=== PATIENT | female | born 1960 | race Caucasian/White ===

== ENCOUNTER 2025-04-23 09:57 | Observation (INO) | payer MEDICARE, OTHER ==
[~2025-04-23] VITALS: Ht 165.1 cm; Wt 68.9 kg
[2025-04-23 10:40] LABS: BASO # 0.0 10^3/uL (0.0-0.2); BASO % 0.7 % (0.0-1.0); EOS # 0.2 10^3/uL (0.0-0.5); EOS % 3.2 % (0.0-3.0); LYMPH # 2.1 10^3/uL (1.5-5.0); LYMPH % 36.7 % (24.0-44.0); MONO # 0.5 10^3/uL (0.0-0.8); MONO % 8.2 % (2.0-8.0); NEUTROPHILS # 2.9 10^3/uL (1.5-8.5); NEUTROPHILS % 51.0 % (36.0-66.0); PLATELET COUNT, AUTOMATED 221 10^3/uL (150-450)
[2025-04-23 11:04] LABS: CALCIUM LEVEL 9.0 MG/DL (8.3-10.6); CARBON DIOXIDE LEVEL 28 MMOL/L (20-31); CHLORIDE LEVEL 107 MMOL/L (98-107); CREATININE FOR GFR 0.75 MG/DL (0.55-1.30); GLOMERULAR FILTRATION RATE 88.3 (>45); POTASSIUM SERUM 4.6 MMOL/L (3.5-5.1); SODIUM LEVEL 139 MMOL/L (136-145)
[2025-04-23] MEDS: ACETAMINOPHEN 500 MG TAB PO ONE (11:44)
[2025-04-23 12:27] LABS: AMPHETAMINES LEVEL URINE NEGATIVE (NEGATIVE); BARBITURATES URINE NEGATIVE (NEGATIVE); BENZODIAZEPINES URINE NEGATIVE (NEGATIVE); COCAINE METABOLITE URINE NEGATIVE (NEGATIVE); METHADONE URINE NEGATIVE (NEGATIVE); OPIATES URINE NEGATIVE (NEGATIVE); PHENCYCLIDINE URINE NEGATIVE (NEGATIVE)
[2025-04-23 12:28] LABS: CANNABINOIDS URINE POSITIVE (NEGATIVE)
[2025-04-23] MEDS ORDERED: ISOVUE-370 76% 100 ML VIAL As Ordered ONE (13:04)
[2025-04-23] MEDS: LR 500 ML in IV 1 EA IV ONE (14:39)
[2025-04-23] MEDS ORDERED: DULO60CA35 PO (15:31)
[2025-04-23] MEDS ORDERED: CLON1TAB8 PO (15:31)
[2025-04-23] MEDS ORDERED: EZET10TA57 PO (15:31)
[2025-04-23] MEDS ORDERED: MELO7.5T35 PO (15:31)
[2025-04-23] MEDS ORDERED: TRAZ-186 PO (15:31)
[2025-04-23] MEDS ORDERED: ASPI81TA26 PO (15:31)
[2025-04-23] MEDS ORDERED: PANT-23 PO (15:31)
[2025-04-23] MEDS ORDERED: HOME MED LIST COMPLETE! XX SCH (15:35)
[2025-04-23] MEDS: traZODone 50 MG TAB PO PRN (20:45)
[2025-04-23] MEDS: PANTOPRAZOLE 40MG TAB PO SCH (20:46)
[2025-04-23] MEDS: MELOXICAM 7.5 MG TAB PO SCH (20:46)
[2025-04-23] MEDS: clonazePAM 1 MG TAB PO PRN (20:46)
[2025-04-24] MEDS: ENOXAPARIN 40 MG/0.4 ML SYRINGE (J1650 PER 10MG) SC SCH (09:36)
[2025-04-24] MEDS: ASPIRIN 81 MG ENTERIC TABLET PO SCH (09:37)
[2025-04-24] MEDS: PNEUMOC 21-VAL CONJ-DIP CRM/PF 0.5 ML SYRINGE IM.IMMUN ONE (09:37)
[2025-04-24] MEDS: EZETIMIBE 10 MG TABLET PO SCH (09:37)
[2025-04-24 14:54] LABS: PLATELET COUNT, AUTOMATED 218 10^3/uL (150-450)
[2025-04-24 15:02] LABS: CALCIUM LEVEL 9.0 MG/DL (8.3-10.6); CARBON DIOXIDE LEVEL 27 MMOL/L (20-31); CHLORIDE LEVEL 110 MMOL/L (98-107); CREATININE FOR GFR 0.71 MG/DL (0.55-1.30); GLOMERULAR FILTRATION RATE > 90.0 (>45); MAGNESIUM LEVEL 1.9 MG/DL (1.8-2.4); POTASSIUM SERUM 4.3 MMOL/L (3.5-5.1); SODIUM LEVEL 141 MMOL/L (136-145)
[2025-04-24] MEDS: ACETAMINOPHEN 325 MG TAB PO PRN (20:05)
[2025-04-24] MEDS: MELOXICAM 7.5 MG TAB PO SCH (20:30)
[2025-04-24 22:45] VITALS: BP_SYST 121; BP_SYST 128; BP_SYST 140; BP_DIAS 66; BP_DIAS 68; BP_DIAS 79; TEMP 98.2; O2SAT 97
[2025-04-25 04:00] VITALS: BP 137/67; TEMP 98.4; O2SAT 96
[2025-04-25 08:28] VITALS: BP_SYST 116; BP_SYST 119; BP_SYST 126; BP_DIAS 60; BP_DIAS 62; BP_DIAS 65
== END 2025-04-25 09:36 | disposition home or self-care (01) ==
LOC: EDBD 09:57 → M ED 09:57 → M ED INP 09:58 → M MS4PR 04-24 22:50
PROVIDERS: ADMIT Student in an Organized Health Care Education/Training Program; ATTEND Student in an Organized Health Care Education/Training Program
DX: R55 Syncope and collapse (principal); R63.4 Abnormal weight loss; E78.5 Hyperlipidemia, unspecified; M25.549 Pain in joints of unspecified hand; F12.90 Cannabis use, unspecified, uncomplicated; F32.A Depression, unspecified; R42 Dizziness and giddiness; R00.1 Bradycardia, unspecified; R00.2 Palpitations; F41.9 Anxiety disorder, unspecified; Z90.49 Acquired absence of other specified parts of digestive tract; Z90.79 Acquired absence of other genital organ(s); Z80.1 Family history of malignant neoplasm of trachea, bronchus and lung; Z82.3 Family history of stroke; Z82.49 Family history of ischemic heart disease and other diseases of the circulatory system; F17.210 Nicotine dependence, cigarettes, uncomplicated; Z79.899 Other long term (current) drug therapy; Z79.82 Long term (current) use of aspirin; Z23 Encounter for immunization
CPT/HCPCS: 36415; 71275; 80048; 80307; 83735; 84443; 84484; 85025; 85027; 90684; 93005; 93041; 93306; 94760; 96372; 99285; G0009; G0378; J1650; Q9967

== ENCOUNTER → 2025-04-25 | Outpatient (CLI) | payer MEDICARE ==
[~2025-04-25] MED LIST: ASPI81TA26 PO; CLON1TAB8 PO; DULO60CA35 PO; EZET10TA57 PO; MELO7.5T35 PO; PANT-23 PO; TRAZ-186 PO
== END ==
LOC: M EKG 10:04
PROVIDERS: ATTEND Student in an Organized Health Care Education/Training Program
DX: R55 Syncope and collapse (principal)